=== PATIENT | male | born 1960 | race Caucasian/White ===

== ENCOUNTER → 2021-11-26 | Outpatient (CLI) | payer OTHER | LOC: KOH-I 09:24 | DX: M79.672 Pain in left foot (principal); M79.671 Pain in right foot; M19.071 Primary osteoarthritis, right ankle and foot; M19.072 Primary osteoarthritis, left ankle and foot; M77.32 Calcaneal spur, left foot; M77.31 Calcaneal spur, right foot | CPT/HCPCS: 73630 ==